=== PATIENT | female | born 1945 | race Caucasian/White ===

== ENCOUNTER 2018-01-02 14:09 | Emergency (ER) | payer OTHER ==
[~2018-01-02] VITALS: Ht 160 cm; Wt 54.4 kg
[~2018-01-02 14:09] MED LIST: HYDR5CAP PO; OMEP20TA44 PO; PANTOPRAZOLE PO; SIMV-8 PO; SUCR1TAB36 PO; TRIAMTERINE PO; VALS160T51 PO; VIT B PO; [UNRECOGNIZED DRUG - OTHER] PO; [UNRECOGNIZED DRUG - OTHER] PO
[2018-01-02] MEDS ORDERED: SODIUM CHLORIDE 0.9% 500 ML IV ONE (14:18)
[2018-01-02 15:30] LABS: Basophils # (auto) 0 uL; Eosinophils # (auto) 0 uL; Lymphocytes # (auto) 0.6 uL; Red Cell Distribution Width 19.6 % (11.8-14.3); White Blood Cell 7.3 10^3/uL (4.4-10.8)
[2018-01-02 15:31] LABS: Basophils % (auto) 0.5 % (0.0-2.0); Eosinophils % (auto) 0.3 % (0.0-7.0); Hematocrit 33.3 % (36.0-46.0); Hemoglobin 10.7 g/dL (12.2-16.2); Lymphocytes % (auto) 8.3 % (10.0-50.0); Mean Corpuscular Hemoglobin 23.7 pg (28.0-32.0); Mean Corpuscular Hgb Conc. 32.2 g/dL (32.0-36.0); Mean Corpuscular Volume 73.7 fL (80.0-100.0); Monocytes # (auto) 0.9 uL; Monocytes % (auto) 12.3 % (0.0-12.0); Neutrophils # (auto) 5.8 uL; Neutrophils % (auto) 78.6 % (37.0-80.0); Platelet Count (auto) 214 10^3/uL (140-450); Red Blood Cells 4.52 10^6/uL (4.0-5.20)
[2018-01-02 15:50] LABS: Alanine Aminotransferase 14 U/L (13-56); Albumin 2.9 g/dL (3.4-5.0); Alkaline Phosphatase 53 U/L (45-117); Anion Gap 11 (5-15); Aspartate Aminotransferase 10 U/L (15-37); BUN/Creatinine Ratio 28.2; Bilirubin, Total 0.5 mg/dL (0.2-1.0); Blood Urea Nitrogen 22 mg/dL (7-18); Calcium 8.5 mg/dL (8.5-10.1); Carbon Dioxide 25 mmol/L (21-32); Chloride 104 mmol/L (98-107); GFR African American 93 mL/min; GFR Non-African American 77 mL/min; Glucose 79 mg/dL (74-106); Magnesium 2.2 mg/dL (1.6-2.6); Potassium 3.9 mmol/L (3.5-5.1); Sodium 140 mmol/L (136-145)
[2018-01-02 20:57] VITALS: BP 117/53
== END 2018-01-02 21:08 | disposition home or self-care (01) ==
LOC: ER 14:09 → EDBD 14:09 → ER 20:57
DX: R53.1 Weakness (principal); I10 Essential (primary) hypertension; E78.5 Hyperlipidemia, unspecified; Z86.73 Personal history of transient ischemic attack (TIA), and cerebral infarction without residual deficits
CPT/HCPCS: 36415; 71045; 80053; 83735; 84484; 85025; 93005; 94761; 99285; J7030

== ENCOUNTER 2018-12-28 18:48 | Emergency (ER) | payer OTHER ==
[~2018-12-28] VITALS: Ht 172.7 cm; Wt 54.4 kg
[2018-12-28 20:14] LABS: Basophils # (auto) 0 uL; Basophils % (auto) 0.2 % (0.0-2.0); Eosinophils # (auto) 0.1 uL; Eosinophils % (auto) 0.8 % (0.0-7.0); Hemoglobin 13.5 g/dL (12.2-16.2); Lymphocytes # (auto) 0.8 uL; Lymphocytes % (auto) 4.5 % (10.0-50.0); Mean Corpuscular Hemoglobin 28.3 pg (28.0-32.0); Mean Corpuscular Hgb Conc. 32.9 g/dL (32.0-36.0); Mean Corpuscular Volume 86.2 fL (80.0-100.0); Monocytes # (auto) 0.9 uL; Monocytes % (auto) 5.4 % (0.0-12.0); Neutrophils # (auto) 15.2 uL; Neutrophils % (auto) 89.1 % (37.0-80.0); Nucleated Red Blood Cells % 0.1 %; Platelet Count (auto) 337 10^3/uL (140-450); Red Blood Cells 4.76 10^6/uL (4.0-5.20); Red Cell Distribution Width 13.6 % (11.8-14.3)
[2018-12-28 20:23] LABS: Alanine Aminotransferase 23 U/L (13-56); Albumin 3.3 g/dL (3.4-5.0); Anion Gap 10 (5-15); Aspartate Aminotransferase 18 U/L (15-37); BUN/Creatinine Ratio 51.2; Blood Urea Nitrogen 42 mg/dL (7-18); Calcium 9.4 mg/dL (8.5-10.1); Carbon Dioxide 25 mmol/L (21-32); Chloride 105 mmol/L (98-107); GFR African American 87 mL/min; GFR Non-African American 72 mL/min; Glucose 120 mg/dL (74-106); Potassium 3.5 mmol/L (3.5-5.1); Sodium 140 mmol/L (136-145)
[2018-12-28 20:28] LABS: Alkaline Phosphatase 76 U/L (45-117); Bilirubin, Total 0.5 mg/dL (0.2-1.0); Total Protein 6.6 g/dL (6.4-8.2)
[2018-12-28] MEDS ORDERED: ONDANSETRON HCL 4 MG/2 ML VIAL IV PRN (22:00)
[2018-12-28] MEDS ORDERED: SODIUM CHLORIDE 0.9% 2,000 ML IV ONE (22:00)
[2018-12-28] MEDS: MORPHINE SULF INJ 2 MG/ML SYRINGE 1ML IV PRN (22:57)
[2018-12-28 23:00] LABS: Urine Bacteria MOD /hpf (None Seen); Urine Blood Negative /uL (Negative); Urine Mucus FEW (None Seen); Urine Specific Gravity 1.029 (1.001-1.035); Urine WBC 6 /hpf (0 - 5)
[2018-12-29] MEDS ORDERED: hydrALAZINE HCL 20 MG/ML VL ONE (01:23)
[2018-12-29] MEDS: SODIUM CHLORIDE 0.9% 1,000 ML IV SCH ×2 (02:29→06:00)
[2018-12-29] MEDS: MORPHINE SULF INJ 2 MG/ML SYRINGE 1ML IV PRN (03:30)
[2018-12-29 05:16] LABS: Basophils # (auto) 0.1 uL; Basophils % (auto) 0.4 % (0.0-2.0); Eosinophils # (auto) 0.3 uL; Eosinophils % (auto) 1.8 % (0.0-7.0); Hemoglobin 12.8 g/dL (12.2-16.2); Lymphocytes # (auto) 0.7 uL; Lymphocytes % (auto) 4.9 % (10.0-50.0); Mean Corpuscular Hemoglobin 28.1 pg (28.0-32.0); Mean Corpuscular Hgb Conc. 31.9 g/dL (32.0-36.0); Mean Corpuscular Volume 88.2 fL (80.0-100.0); Monocytes # (auto) 0.9 uL; Monocytes % (auto) 6.1 % (0.0-12.0); Neutrophils # (auto) 13.2 uL; Neutrophils % (auto) 86.8 % (37.0-80.0); Platelet Count (auto) 290 10^3/uL (140-450); Red Blood Cells 4.54 10^6/uL (4.0-5.20); Red Cell Distribution Width 13.4 % (11.8-14.3); White Blood Cell 15.2 10^3/uL (4.4-10.8)
[2018-12-29] MEDS ORDERED: hydrALAZINE HCL 20 MG/ML VL IV ONE (06:00)
[2018-12-29] MEDS ORDERED: hydrALAZINE HCL 20 MG/ML VL IV PRN (06:30)
[2018-12-29 08:00] VITALS: BP 97/74
== END 2018-12-29 09:11 | disposition home or self-care (01) ==
LOC: EDBD 18:48 → ER 18:48
DX: K80.20 Calculus of gallbladder without cholecystitis without obstruction (principal); S09.8XXA Other specified injuries of head, initial encounter; E78.5 Hyperlipidemia, unspecified; I10 Essential (primary) hypertension; Z86.73 Personal history of transient ischemic attack (TIA), and cerebral infarction without residual deficits; Z87.11 Personal history of peptic ulcer disease; Z87.891 Personal history of nicotine dependence; Z79.899 Other long term (current) drug therapy; X58.XXXA Exposure to other specified factors, initial encounter; Y93.89 Activity, other specified; Y92.89 Other specified places as the place of occurrence of the external cause; Y99.8 Other external cause status
CPT/HCPCS: 36415; 70450; 71045; 74176; 76705; 80053; 81001; 83735; 84484; 85025; 93005; 94761; 96361; 96374; 99284; J0360; J2270; J2405; J7030

== ENCOUNTER 2019-01-05 00:31 | Emergency (ER) | payer OTHER ==
[~2019-01-05] VITALS: Ht 170.2 cm; Wt 72.6 kg
[2019-01-05 02:09] LABS: BUN/Creatinine Ratio 15.8; Calcium 10.4 mg/dL (8.5-10.1); Potassium 3.4 mmol/L (3.5-5.1)
[2019-01-05 02:10] LABS: Basophils # (auto) 0 uL; Basophils % (auto) 0.4 % (0.0-2.0); Eosinophils # (auto) 0.1 uL; Eosinophils % (auto) 1.4 % (0.0-7.0); Hematocrit 37.7 % (36.0-46.0); Hemoglobin 12.8 g/dL (12.2-16.2); Lymphocytes # (auto) 0.8 uL; Lymphocytes % (auto) 8.7 % (10.0-50.0); Mean Corpuscular Hemoglobin 28.9 pg (28.0-32.0); Mean Corpuscular Hgb Conc. 33.9 g/dL (32.0-36.0); Mean Corpuscular Volume 85.2 fL (80.0-100.0); Monocytes # (auto) 0.8 uL; Monocytes % (auto) 8.4 % (0.0-12.0); Neutrophils # (auto) 7.7 uL; Neutrophils % (auto) 81.1 % (37.0-80.0); Platelet Count (auto) 404 10^3/uL (140-450); Red Blood Cells 4.43 10^6/uL (4.0-5.20); Red Cell Distribution Width 13.1 % (11.8-14.3); White Blood Cell 9.5 10^3/uL (4.4-10.8)
[2019-01-05 02:12] LABS: Bilirubin, Total 0.4 mg/dL (0.2-1.0); Total Protein 7.2 g/dL (6.4-8.2)
[2019-01-05] MEDS ORDERED: cloNIDine HCL 0.1 MG TAB PO ONE (03:45)
[2019-01-05] MEDS ORDERED: SODIUM CHLORIDE 0.9% 1,000 ML IV ONE (07:11)
[2019-01-05] MEDS ORDERED: ONDANSETRON HCL 4 MG/2 ML VIAL IV ONE (07:15)
[2019-01-05] MEDS ORDERED: POTASSIUM EFFERVESENT TAB 25 MEQ PO ONE (07:30)
[2019-01-05 09:55] VITALS: BP 142/65
== END 2019-01-05 11:49 | disposition home or self-care (01) ==
LOC: EDBD 00:31 → ER 00:37
DX: K80.80 Other cholelithiasis without obstruction (principal); I10 Essential (primary) hypertension; E78.5 Hyperlipidemia, unspecified; Z90.49 Acquired absence of other specified parts of digestive tract; Z79.899 Other long term (current) drug therapy; Z86.73 Personal history of transient ischemic attack (TIA), and cerebral infarction without residual deficits
CPT/HCPCS: 36415; 74176; 80053; 83690; 85025; 93005; 96374; 99284; J2405; J7030

== ENCOUNTER → 2019-02-24 | Emergency (ER) | payer OTHER ==
[~2019-02-24] VITALS: Ht 167.6 cm; Wt 49.9 kg
[~2019-02-24] MED LIST changes: +MORPHINE SULFATE 4 MG/ML SYR/VIAL IV ONE; +ONDANSETRON HCL 4 MG/2 ML VIAL IV ONE
[2019-02-24 18:46] LABS: Hematocrit 29.8 % (36.0-46.0); Mean Corpuscular Hemoglobin 27.6 pg (28.0-32.0); Mean Corpuscular Hgb Conc. 33.6 g/dL (32.0-36.0); Mean Corpuscular Volume 82.2 fL (80.0-100.0); Platelet Count (auto) 285 10^3/uL (140-450); Red Blood Cells 3.62 10^6/uL (4.0-5.20); Red Cell Distribution Width 14.7 % (11.8-14.3); White Blood Cell 5.1 10^3/uL (4.4-10.8)
[2019-02-24 18:49] LABS: Basophils % (manual) 0 (0.0-2.0); Blast Cells 0; Metamyelocytes % 0; Myelocytes % 0; Promyelocytes % 0; Reactive Lymphocytes 0
[2019-02-24 18:56] LABS: Albumin 2.4 g/dL (3.4-5.0); Calcium 8.1 mg/dL (8.5-10.1); Potassium 3.8 mmol/L (3.5-5.1)
[2019-02-24 19:00] LABS: BUN/Creatinine Ratio 22.9; Bilirubin, Total 0.4 mg/dL (0.2-1.0); Total Protein 5.8 g/dL (6.4-8.2)
[2019-02-24 19:12] LABS: Band Neutrophils % (manual) 4; Eosinophils % (manual) 1 (0-7); Lymphocytes % (manual) 11 (10.0-50.0); Monocytes % (manual) 4 (0-12)
[2019-02-24 20:01] VITALS: BP 149/69
== END | disposition home or self-care (01) ==
LOC: EDUNIT# 17:18 → ER 17:26 → EDBD 17:26 → ER 22:20
DX: K80.80 Other cholelithiasis without obstruction (principal); E78.5 Hyperlipidemia, unspecified; I10 Essential (primary) hypertension; Z79.899 Other long term (current) drug therapy; Z86.73 Personal history of transient ischemic attack (TIA), and cerebral infarction without residual deficits
CPT/HCPCS: 36415; 80053; 82150; 83690; 85007; 85027; 96374; 96375; 99284; J2270; J2405

== ENCOUNTER 2019-04-04 09:10 | Inpatient (IN) | payer OTHER ==
[~2019-04-04] VITALS: Ht 157.5 cm; Wt 45.3 kg
[~2019-04-04 09:10] MED LIST changes: -MORPHINE SULFATE 4 MG/ML SYR/VIAL IV ONE; -ONDANSETRON HCL 4 MG/2 ML VIAL IV ONE
[2019-04-04] MEDS ORDERED: SODIUM CHLORIDE 0.9% 1,000 ML IVB ONE (10:08)
[2019-04-04 11:20] LABS: Hematocrit 31.8 % (36.0-46.0)
[2019-04-04 11:22] LABS: Hemoglobin 9.8 g/dL (12.2-16.2); Mean Corpuscular Hemoglobin 23.8 pg (28.0-32.0); Mean Corpuscular Hgb Conc. 30.9 g/dL (32.0-36.0); Platelet Count (auto) 554 10^3/uL (140-450); Red Blood Cells 4.12 10^6/uL (4.0-5.20); Red Cell Distribution Width 18.3 % (11.8-14.3); White Blood Cell 17.9 10^3/uL (4.4-10.8)
[2019-04-04 11:24] LABS: Basophils % (manual) 0 (0.0-2.0); Blast Cells 0; Eosinophils % (manual) 0 (0-7); Metamyelocytes % 0; Promyelocytes % 0; Reactive Lymphocytes 0
[2019-04-04 11:37] LABS: Albumin 2.7 g/dL (3.4-5.0); Calcium 9.6 mg/dL (8.5-10.1); Magnesium 2.3 mg/dL (1.6-2.6); Potassium 3.5 mmol/L (3.5-5.1)
[2019-04-04 11:42] LABS: Urine Bacteria MANY /hpf (None Seen); Urine Blood 2+ /uL (Negative); Urine WBC 2972 /hpf (0 - 5); Urine WBC Clumps PRESENT /hpf (None Seen)
[2019-04-04 11:43] LABS: BUN/Creatinine Ratio 28.9; Bilirubin, Total 0.4 mg/dL (0.2-1.0); Total Protein 7.1 g/dL (6.4-8.2)
[2019-04-04 11:52] LABS: Lactic Acid w/Reflex 3.6 mmol/L (0.4-2.0)
[2019-04-04 11:54] LABS: Amphetamine Screen, Urine NEGATIVE (NEGATIVE); Barbiturate Scree,Urine NEGATIVE (NEGATIVE); Benzodiazephine Screen, Urine NEGATIVE (NEGATIVE); Cannabinoid Screen, Urine NEGATIVE (NEGATIVE); Cocaine Screen, Urine NEGATIVE (NEGATIVE); Opiate Scree,Urine NEGATIVE (NEGATIVE); Phencyclidine Screen, Urine NEGATIVE (NEGATIVE)
[2019-04-04] MEDS ORDERED: cefTRIAXone 1GM/50ML D5W 50 ML IV ONE (12:15)
[2019-04-04 12:49] LABS: Band Neutrophils % (manual) 8; Lymphocytes % (manual) 3 (10.0-50.0); Monocytes % (manual) 3 (0-12)
[2019-04-04 12:50] LABS: Myelocytes % 1
[2019-04-04] MEDS ORDERED: hydrALAZINE HCL 20 MG/ML VL IV PRN (13:45)
[2019-04-04] MEDS ORDERED: NITROGLYCERIN 0.4 MG SL TAB SL PRN (13:45)
[2019-04-04] MEDS ORDERED: cloNIDine HCL 0.1 MG TAB PO PRN (13:45)
[2019-04-04] MEDS: SODIUM CHLORIDE 0.9% 1,000 ML IV SCH ×2 (13:45→18:02)
[2019-04-04] MEDS ORDERED: MORPHINE SULF INJ 2 MG/ML SYRINGE 1ML IV PRN (13:45)
--- NOTE | 2019-04-04 16:15 | NUR ---
Patient came to floor from ER. Patient VS 97.3, 122 heart rate, 16 RR, 98% and 97/46. Patient on 5L 02 NC. Receiving NS at 100 ml/hr. Wolfe hanging bedside. Bed in locked and lowest position with 2x side rails up and call light bedside. Unable to obtain history of patient, patient is aphasic and no family members are bedside. Also unable to reach family at past number we had listed. Will continue to monitor patient.
[2019-04-04 16:49] VITALS: BP 97/46
[2019-04-04 17:00] VITALS: BP 97/46
--- NOTE | 2019-04-04 17:03 | NUR ---
SWALLOW EVALUATION. PATIENT SEEN IN ED. PATIENT ALOC AND NONVERBAL. PATIENT HAS UPPER AND LOWER DENTURES IN. PATIENT ABLE TO TOLERATE PUREE DIET TEXTURE WITH THIN LIQUIDS WITH NO OVERT SIGNS OR SYMPTOMS OF ASPIRATION. NURSING NOTIFIED.
--- NOTE | 2019-04-04 18:34 | NUR ---
Doctor Note Please contact Dr. Camilo if/when family is bedside with patient.
--- NOTE | 2019-04-04 18:48 | NUR ---
Dr. Camilo bedside assessing patient. Orders received and carried out.
--- NOTE | 2019-04-04 19:24 | NUR ---
Opening Shift Note Assumed care of patient, who is unresponsive to voice, only touch. NS infusing at 100 mls/hr. Bed is in lowest position and locked. Call light within reach. Board updated. Wolfe catheter hung below bladder with collection bag secured to non-moveable part of bedframe. Bed alarm on. No S/S of distress/SOB or pain. Instructed on POC and to call for assist PRN, will continue to monitor for changes Q1hr and PRN.
[2019-04-04 21:54] VITALS: BP 122/58
--- NOTE | 2019-04-04 23:15 | NUR ---
Wolfe collection bag was found to be leaking urine onto the floor. A small hole was found in bottom of bag. Wolfe catheter bag replaced. Patient tolerated well.
--- NOTE | 2019-04-05 01:42 | NUR ---
IV to left wrist found to be infiltrated. IV removed with catheter intact. Site covered by sterile gauze and wrapped in coban. Hot pack placed over site to reduce infiltration. Arm elevated on pillow as well.
--- NOTE | 2019-04-05 02:03 | NUR ---
IV insertion IV access obtained, via clean technique by inserting a 22 gauge catheter into a vein in the left forearm after 2 attempts. IV secured properly. No trauma to site. Patient tolerated well.
[2019-04-05 04:47] VITALS: BP 133/76
--- NOTE | 2019-04-05 05:09 | NUR ---
Spoke to MD Washington regarding patient's decreased urine output 120 mls in 12 hours, 10 mls/hr average. Patient's HR is still elevated but has decreased to low 100s from high 110s, BP has stabilized, temp is WNL. Patient is receiving 100 mls/hr currently. Per MD Washington, change 0.9% sodium chloride to 63 ml/hr.
[2019-04-05] MEDS ORDERED: SODIUM CHLORIDE 0.9% 1,000 ML IV SCH (05:30)
[2019-04-05 07:27] LABS: Basophils # (auto) 0 uL; Basophils % (auto) 0.1 % (0.0-2.0); Eosinophils # (auto) 0 uL; Hematocrit 27.1 % (36.0-46.0); Hemoglobin 7.6 g/dL (12.2-16.2); Lymphocytes # (auto) 1.1 uL; Lymphocytes % (auto) 8.2 % (10.0-50.0); Mean Corpuscular Hemoglobin 24.1 pg (28.0-32.0); Mean Corpuscular Hgb Conc. 28.1 g/dL (32.0-36.0); Mean Corpuscular Volume 85.7 fL (80.0-100.0); Monocytes # (auto) 0.4 uL; Neutrophils # (auto) 12.1 uL; Neutrophils % (auto) 88.7 % (37.0-80.0); Nucleated Red Blood Cells % 0.1 %; Platelet Count (auto) 412 10^3/uL (140-450); Red Blood Cells 3.17 10^6/uL (4.0-5.20); White Blood Cell 13.6 10^3/uL (4.4-10.8)
[2019-04-05 07:38] LABS: Anion Gap 10 (5-15); Blood Urea Nitrogen 43 mg/dL (7-18); Calcium 9.1 mg/dL (8.5-10.1); Carbon Dioxide 18 mmol/L (21-32); Chloride 120 mmol/L (98-107); Glucose 139 mg/dL (74-106); Potassium 3.3 mmol/L (3.5-5.1); Sodium 148 mmol/L (136-145)
[2019-04-05 07:39] LABS: BUN/Creatinine Ratio 44.8; GFR African American 73 mL/min; GFR Non-African American 60 mL/min
--- NOTE | 2019-04-05 07:45 | NUR ---
Opening Shift Note Received report on the patient. Awake lying in bed. Patient show no signs of distress at this time. Tried to discuss plan of care, but no response from the patient. Bed is in the lowest position, side rails up x2, and the call light is within reach. Will continue to monitor.
[2019-04-05 09:00] VITALS: BP 93/51
--- NOTE | 2019-04-05 09:30 | NUR ---
Social Service resident services supervisor consult cancelled per Dr Rowland.
--- NOTE | 2019-04-05 09:42 | NUR ---
Contact Information Requested husbands contact information from Dr. Camilo and he refused.
--- NOTE | 2019-04-05 09:54 | NUR ---
Midline Placement: Patient educated on need for midline placement. All risks and benefits explained and all questions and concerns addresses prior to procedure. 4Fr 20cm midline inserted via right basilic vein using Ultrasound. Sterile technique utilized. Blood return obtained from single lumen and flushed easily with NS using proper technique. Midline secured with saline lock; biodisc and occlusive dressing applied. Primary RN notified. Midline lot #[id number]. Internal length 20cm External length 0cm
[2019-04-05] MEDS ORDERED: ENOXAPARIN SOD 40 MG/0.4 ML SYRINGE SC SCH (10:00)
[2019-04-05] MEDS ORDERED: amLODIPine BESYLATE 5 MG TAB PO SCH (10:00)
[2019-04-05] MEDS ORDERED: cefTRIAXone 1GM/50ML D5W 50 ML IV SCH (10:00)
--- NOTE | 2019-04-05 10:06 | NUR ---
Weekend television news producer-I received a page from Catrachita at [facility] regarding this patient. I let Catrachita know that there was not an order for Hospice on this patient. I spoke with patient's nurse regarding possible hospice order-letting her know that I also needed contact information for the family so I can give them a choice of hospice agencies-she said Dr. Camilo was at the station and refused to give contact information to her. I let nurse know that hospice is not able to come in to see the patient unless there is an order. I received another page from Catrachita at [facility]-she said she spoke with and he told her the order was placed. I let Catrachita know that there was still no Hospice order for this patient.
[2019-04-05 10:11] VITALS: BP 93/51
--- NOTE | 2019-04-05 10:25 | NUR ---
[facility] contacted Sudarshan at and left a message to set up transportation.
--- NOTE | 2019-04-05 10:28 | NUR ---
Rug Inspector Helper consult Per social worker psychiatric, hospice company requesting social economist order for hospice eval. order placed.
--- NOTE | 2019-04-05 10:34 | NUR ---
I spoke with patient's Lew regarding order for [facility]. I offered him a list of other hospice agencies-he prefers to have [facility] as ordered by .
--- NOTE | 2019-04-05 10:36 | NUR ---
I called Catrachita with [facility] to let them know that the order has been placed-she said their liason will be in to speak with patient/family.
--- NOTE | 2019-04-05 11:49 | NUR ---
called Dr. Camilo in regards to patients low blood pressure of 79/43 and heart rate of 127. Waiting for a call back.
--- NOTE | 2019-04-05 12:10 | NUR ---
Attempted PT eval but pt is not appropriate for therapy at this time. Pt is not able to follow commands. Per nursing, pt is also dependent for all mobility. Will attempt again later if pt becomes appropriate for physical therapy.
--- NOTE | 2019-04-05 12:14 | NUR ---
MD GARCIA called back and ordered 1 liter bolus and albumin 25% 50 g IV once.
--- NOTE | 2019-04-05 12:17 | NUR ---
Recheck BP Patients blood pressure is not 87/51. Will continue to monitor.
--- NOTE | 2019-04-05 12:18 | NUR ---
[facility] called Sudarshan and left a message. Waiting for a call back.
--- NOTE | 2019-04-05 12:21 | NUR ---
Transportation Transport is set up with [facility] from 2:30-3:30.
--- NOTE | 2019-04-05 12:24 | NUR ---
[facility] spoke to Sudarshan at [facility]. Stated that patient is going home on hospice. Will continue to monitor.
--- NOTE | 2019-04-05 12:34 | NUR ---
BP Blood pressure now 120/52, HR 119, O2 99%
--- NOTE | 2019-04-05 12:39 | NUR ---
AIR MATTRESS: Informed by Bedside nurse that patient has Discharge order. Call [facility] to cancel air mattress
[2019-04-05 13:00] VITALS: BP 79/43
[2019-04-05] MEDS: ALBUMIN 25% 100 ML IV SCH ×2 (13:00→16:26)
--- NOTE | 2019-04-05 13:50 | NUR ---
Called Dr. Camilo to inform that pt had respiratory and cardiac arrest, pt was coded, and pronounced at [address] Carpenter.
--- NOTE | 2019-04-05 14:00 | NUR ---
Tried to contact the Lew at . No answer.
--- NOTE | 2019-04-05 14:02 | NUR ---
Transportation [facility] contacted and cancel transport, pt has .
--- NOTE | 2019-04-05 14:03 | NUR ---
[facility] Contact [facility] to inform Sudarshan/malt liquors sales representative that pt has . Sudarshan will cancel all the arrangements for hospice, and will have a malt liquors sales representative to go to the pt's 's house to inform the that the pt has . As per Sudarshan the pt's usually takes the phone off the hook and does not like to answer phone calls, and the only way to contact the pt's is to go to the pt's 's house to inform him. Several attempts done to contact the pt's , Lew / [phone], but the phone is always busy.
--- NOTE | 2019-04-05 14:31 | NUR ---
Lew Camacho called and informed him of a change in status. Awaiting for his arrival.
--- NOTE | 2019-04-05 14:37 | NUR ---
[employer] Called [facility]. Called [employer] and [employer]'s office and am waiting for a call back.
--- NOTE | 2019-04-05 15:12 | NUR ---
Treatment Manager's Office [facility] Don[facility] Mast called back.
--- NOTE | 2019-04-05 16:16 | NUR ---
Autopsy requested an autopsy. I called the tap builder's office and they said it would be a cost to the family of $4,197.00. Called Lew () to inform him of the cost and he no longer wants the autopsy.
--- NOTE | 2019-04-05 17:25 | NUR ---
I SPOKE TO LEXY, OF [facility]. HE HAS AUTHORIZED RELEASE OF REMAINS TO [facility]. PHONE CONSENT OBTAINED. I SPOKE TO ESTIVEN AT [facility] AND PICKUP WILL BE IN 1 HR.
--- NOTE | 2019-04-05 18:13 | NUR ---
Anup [facility] came and picked up the patient.
== END 2019-04-05 15:50 | disposition expired | DRG 871 ==
LOC: EDBD 09:10 → ER 09:14 → TELE 09:15 → TELE-EAST 17:19
PROVIDERS: ADMIT Internal Medicine; ATTEND Internal Medicine
PROC: 5A12012 Performance of Cardiac Output, Single, Manual (ICD-10-PCS; principal; 2019-04-05)
DX: A41.89 Other specified sepsis (principal); J96.00 Acute respiratory failure, unspecified whether with hypoxia or hypercapnia; G93.41 Metabolic encephalopathy; N17.9 Acute kidney failure, unspecified; N12 Tubulo-interstitial nephritis, not specified as acute or chronic; E44.0 Moderate protein-calorie malnutrition; Z68.1 Body mass index [BMI] 19.9 or less, adult; F03.90 Unspecified dementia, unspecified severity, without behavioral disturbance, psychotic disturbance, mood disturbance, and anxiety; E78.5 Hyperlipidemia, unspecified; I12.9 Hypertensive chronic kidney disease with stage 1 through stage 4 chronic kidney disease, or unspecified chronic kidney disease; E11.22 Type 2 diabetes mellitus with diabetic chronic kidney disease; N18.9 Chronic kidney disease, unspecified; I46.9 Cardiac arrest, cause unspecified; K21.9 Gastro-esophageal reflux disease without esophagitis; J44.9 Chronic obstructive pulmonary disease, unspecified; E11.21 Type 2 diabetes mellitus with diabetic nephropathy; D63.8 Anemia in other chronic diseases classified elsewhere; I16.0 Hypertensive urgency; Z86.73 Personal history of transient ischemic attack (TIA), and cerebral infarction without residual deficits; Z90.49 Acquired absence of other specified parts of digestive tract; Z87.11 Personal history of peptic ulcer disease; Z79.899 Other long term (current) drug therapy; Z90.89 Acquired absence of other organs; Z79.84 Long term (current) use of oral hypoglycemic drugs
CPT/HCPCS: 36415; 51702; 70450; 71045; 80048; 80053; 80307; 81001; 83605; 83735; 84443; 84484; 85007; 85025; 85027; 87040; 87077; 87086; 87088; 87186; 92610; 93005; 96361; 96365; 96375; 99291; G0378; J0696; P9047